=== PATIENT | male | born 1960 | race Caucasian/White ===

== ENCOUNTER 2019-01-25 14:49 | Emergency (ER) | payer OTHER ==
--- NOTE | 2019-01-25 15:07 | ED Physician Documentation ---
History of Present Illness - Stated complaint Stated Complaint: R HAND INJ - Chief complaint Chief Complaint: Ext Problem - Additonal information Additional information: This is a 58 year old male who presents with R middle finger soreness after an injury last Thursday. He strick his right middle finger on a transmission bracket and since then has had pain around his MCP joint that radiates towards his palm. He has continued to use it to work but it has gotten more sore and when he flexes his finger at the MCP he notes the knuckle appears abnormal. He has had multiple injuries to his fingers in the past from work. Pain is mild but worse after use. Review of Systems Skin: denies: Rash Musculoskeletal: reports: Extremity pain PD PAST MEDICAL HISTORY - Past Medical History Cardiovascular: None Respiratory: Other Endocrine/Autoimmune: None GI: Hemorrhoids, Other : None HEENT: None Psych: Anxiety Musculoskeletal: None Derm: None - Past Surgical History Ortho: Other - Present Medications Home Medications: Ambulatory Orders Medication Instructions Recorded Confirmed Lactobacillus Combo No.11 1 each PO DAILY 04/05/14 04/06/14 [Probiotic] - Allergies Allergies/Adverse Reactions: Allergies Allergy/AdvReac Type Severity Reaction Status Date / Time No Known Drug Allergies Allergy Verified 04/05/14 13:45 PD ED PE NORMAL - General General: Alert and oriented X 3 - Cardiac Cardiac: Strong equal pulses - Respiratory Respiratory: No respiratory distress - Extremities Extremities: Other (There is mild tenderness of the R middle finger proximal phalanx base. Pt is able to flex his DIP in isolation, his PIP, and his MCP, but with MCP active flexion he is only able to get to around 60 degrees instead of 90 degrees with his other fingers. Passive ROM is normal. Extension normal. SILT, cap refill brisk. With passive flexion the metacarpal of the MCP joint is more prominent) - Neuro Neuro: Alert and oriented X 3 Results - Vitals Vitals: Vital Signs - 24 hr 01/25/19 01/25/19 14:58 17:09 Temperature 37 C Heart Rate 91 90 Respiratory 18 18 Rate Blood Pressure 132/83 H 146/83 H O2 Saturation 98 95 Oxygen O2 Source Room air - Rads (name of study) XR hand Radiology: Other (Questionable subacute vs chronic distal middle phalanx fracture.) PD MEDICAL DECISION MAKING - ED course ED course: XR read by radiology is a questionable fracture of the distal middle phalanx, but this is non tender and not swollen, patients pain is at the base of the proximal phalanx, which does not have signs of fracture on XR. His tendons appear intact, but he does appear to have some laxity at the MCP joint that raises concern for joint/ligamentous injury. Given his livelihood involves heavy use of his hands, I recommended rest and close follow up with a hand specialist for further evaluation. I discussed avoidance of any activity that caused pain prior to follow up. I also discussed return precautions. Work note was provided. Departure - Departure Disposition: Home, Self Care Clinical Impression: Finger injury Qualifiers: Encounter type: initial encounter Laterality: right Qualified Code(s): S69.91XA - Unspecified injury of right wrist, hand and finger(s), initial encounter Condition: Good Follow-Up: Maynor Kiran II, MD [Physician No Access] - Comments: You may have damaged the ligaments of your middle finger, please follow-up with a hand surgeon for further testing and evaluation. I put contact information for one hand surgeon, but any hand specialist should be able to evaluate you for this problem, Ask your regular doctor for referral if needed. If you develop worsening pain, numbness or weakness in the finger, please return to emergency department. Do not use the finger if your pain is worsening or it is becoming more swollen with use. May take Tylenol and ibuprofen for discomfort, and ice the finger Forms: Activity restrictions Discharge Date/Time: 01/25/19 17:10
--- NOTE | 2019-01-25 15:35 | XRAY Report ---
Reason: r hand pain Procedure Date: 01/25/2019 Accession Number: [id number] / [id number] Procedure: XR - Hand 3 View RT CPT Code: Final Report FULL RESULT: EXAM: RIGHT HAND RADIOGRAPHY EXAM DATE: 01/25/2019 03:14 PM. CLINICAL HISTORY: Right hand pain. Pain is in the third digit, metacarpophalangeal joint. COMPARISON: None. TECHNIQUE: 3 views. FINDINGS: Bones: The lateral corner of the third middle phalanx extending to the distal interphalangeal joint appears irregular on 2 views, possible fracture, the acuity of which is uncertain given limited visualization and absence of definite acute angulation at the margins. 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 Soft Tissues: Normal. No soft tissue swelling. IMPRESSION: Question of acute versus subacute posttraumatic appearance of the lateral portion of the distal intra-articular aspect of the third middle phalanx. [facility]
[2019-01-25 17:11] VITALS: BP 146/83
== END 2019-01-25 17:10 | disposition home or self-care (01) ==
LOC: ED 14:49
DX: S69.91XA Unspecified injury of right wrist, hand and finger(s), initial encounter (principal); W22.09XA Striking against other stationary object, initial encounter; Y93.89 Activity, other specified; Y99.0 Civilian activity done for income or pay
CPT/HCPCS: 99282; 99283